=== PATIENT | female | born 1980 | race Caucasian/White ===

== ENCOUNTER 2021-09-09 01:01 | Day surgery (SDC) | payer OTHER, SELFPAY ==
[2021-08-20 14:37] VITALS: BMI 25.2
--- NOTE | 2021-09-08 15:36 | P.PNAN_ITS ---
Anes - Initial Pre Proc Eval Procedure: Operation Date: 09/09/21 07:30 Proposed Procedures p Screening Colonoscopy - Daniel Wong MD Date/Time: 09/08/21 15:36 Surgeon: Daniel Wong MD Pre Op Diagnosis: hx of colon polyps Patient Data Age: 41 Gender: F Height: 1.75 m Weight: 77.5 kg Allergies Allergy/AdvReac Type Severity Reaction Status Date / Time No Known Allergies Allergy Verified 09/09/21 06:13 Home Medications Medication Instructions Recorded Confirmed Type citalopram 20 mg tablet 20 mg PO DAILY 02/04/19 09/09/21 History levothyroxine 150 mcg tablet See Rx Instructions .Route 06/21/21 09/09/21 Rx (Synthroid) .COMPLEX #105 tabs Patient hx anesthesia problems: none Family hx anesthesia problems: none Results Review: All pre-operative results and documents have been reviewed as part of the pre- operative evaluation. [facility] Past Medical History Medical History (Updated 07/28/21 @ 11:43 by Daniel Wong MD) Anxiety Hypothyroidism, unspecified Nontoxic multinodular goiter RUBY (obstructive sleep apnea) Surgical History Surgical History (Updated 09/08/21 @ 15:37 by Ji Gonzales DO) History of cholecystectomy History of tubal ligation Family History Family History Other Diabetes mellitus Family history of chronic obstructive pulmonary disease Family history of lung cancer Family history of thyroid disease Social History Social History Smoking packs per day: 1 Smoking cigarettes per day: 20.0 Smoking status: Former smoker Tobacco type: cigarettes Smoking end date: 03/27/17 Additional smoking assessment comments: VAPES CURRENTLY Alcohol intake: current Drinks per week: 1 Alcohol use details: socially Substance use: never Substance use type: does not use Living arrangements: with family Spiritual care concerns: No Anes - Eval Final PreProcedure Day of Procedure 09/08/21 15:36 Patient weight: overweight Heart: regular rate and rhythm Lungs: clear to auscultation Airway: Mallampati scale class II Neurological: alert and oriented Last oral intake: >/= 8 hours ASA classification: III Emergent: no Anesthetic plan: proceed Anesthesia type and monitoring: general GIVS and standard monitoring Results Review: All pre-operative results and documents have been reviewed as part of the pre- operative evaluation. Informed Consent: The patient's anesthetic plan and its attendant risks and benefits were discussed with the patient/family/POA. Questions were solicited and answers provided to the satisfaction of the patient/family/POA.
[2021-09-09 06:15] VITALS: BP 109/66; PULSE 73; RESP 16; TEMP 36.4; O2SAT 99
[2021-09-09] MEDS: LACTATED RINGERS 1,000 ML 150 ML IV CONT (06:21)
--- NOTE | 2021-09-09 07:11 | PM.IMHP ---
H&P: HPI History of Present Illness Date/Time: 09/09/21 07:11 Chief Complaint: History of colon polyps. Narrative: This is a 41-year-old white female patient who has a history of colon polyps 5 years ago. She presents today for surveillance colonoscopy. She reports that her current weight appetite bowel movements are normal. She denies abdominal pain. She has had no bleeding. Family history is noncontributory. Review of Systems Review of Systems: Review of systems noncontributory. ON LICENSE OF [facility] Past Medical History Medical History (Updated 07/28/21 @ 11:43 by Daniel Wong MD) Anxiety Hypothyroidism, unspecified Nontoxic multinodular goiter RUBY (obstructive sleep apnea) Surgical History Surgical History (Updated 09/08/21 @ 15:37 by Ji Gonzales DO) History of cholecystectomy History of tubal ligation Family History Family History Other Diabetes mellitus Family history of chronic obstructive pulmonary disease Family history of lung cancer Family history of thyroid disease Social History Social History Smoking packs per day: 1 Smoking cigarettes per day: 20.0 Smoking status: Former smoker Tobacco type: cigarettes Smoking end date: 03/27/17 Additional smoking assessment comments: VAPES CURRENTLY Alcohol intake: current Drinks per week: 1 Alcohol use details: socially Substance use: never Substance use type: does not use Living arrangements: with family Spiritual care concerns: No Meds Home Medications and Allergies Home Medications Medication Instructions Recorded Confirmed Type citalopram 20 mg tablet 20 mg PO DAILY 02/04/19 09/09/21 History levothyroxine 150 mcg tablet See Rx Instructions .Route 06/21/21 09/09/21 Rx (Synthroid) .COMPLEX #105 tabs Allergies Allergy/AdvReac Type Severity Reaction Status Date / Time No Known Allergies Allergy Verified 09/09/21 06:13 Vital Signs Vital Signs - 24 hr 09/09/21 06:15 Temperature 97.5 F L Pulse Rate 73 Respiratory Rate 16 Blood Pressure 109/66 Pulse Oximetry 99 Oxygen Delivery Room Air Exam Narrative: Physical exam reveals patient to be alert. Vital signs stable. HEENT exam is unremarkable. Patient is anicteric. Lungs are clear to auscultation and percussion. Heart is without murmur or extra sounds. Abdominal exam bowel sounds present soft nontender with no organomegaly. Digital external rectal exam is normal. Assessment and Plan Assessment and plan (1) History of colon polyps: Code(s): Z86.010 - Personal history of colonic polyps Status: Acute Assessment and Plan: Patient has a history of tubular adenomatous colon polyps removed from the colon 5 years ago. She presents today for surveillance colonoscopy. Further recommendations will be given after endoscopy. Anticipate follow-up at 5 year intervals in the future.
[2021-09-09 07:49] VITALS: BP 84/48; PULSE 59; RESP 19; O2SAT 99
[2021-09-09 07:59] VITALS: BP 95/45; PULSE 57; RESP 20; O2SAT 99
[2021-09-09 08:09] VITALS: BP 98/52; PULSE 58; RESP 18; O2SAT 100
== END 2021-09-09 08:14 | disposition home or self-care (01) ==
PROVIDERS: PCP Internal Medicine; Visit Provider Internal Medicine Gastroenterology
PROC: 0DJD8ZZ Inspection of Lower Intestinal Tract, Via Natural or Artificial Opening Endoscopic (ICD-10-PCS; CPT 45378; principal; 2021-09-09 07:30)
DX: Z12.11 Encounter for screening for malignant neoplasm of colon (principal); K64.8 Other hemorrhoids; Z86.010 Personal history of colon polyps; E03.9 Hypothyroidism, unspecified; G47.33 Obstructive sleep apnea (adult) (pediatric); E04.2 Nontoxic multinodular goiter; F41.9 Anxiety disorder, unspecified; F17.290 Nicotine dependence, other tobacco product, uncomplicated
CPT/HCPCS: 45378; J2704; J7120

== ENCOUNTER 2021-10-26 09:42 | Outpatient (CLI) | payer OTHER, SELFPAY ==
[2021-10-26 19:57] LABS: Basophils Absolute Auto 0.1 K/mm3 (0.0-0.1); Basophils Percent Auto 0.8 % (0.2-1.2); Eosinophils Absolute Auto 0.1 K/mm3 (0-0.3); Eosinophils Percent Auto 1.4 % (0-4.4); Hemoglobin 14.1 g/dL (12.0-15.0); Immature Granulocyte Absolute 0.02 K/mm3 (0.00-0.031); Immature Granulocyte Percent A 0.3 % (0-0.5); Lymphocytes Absolute Auto 2.39 K/mm3 (0.9-3.2); Lymphocytes Percent Auto 30.2 % (18.3-44.2); Mean Corpuscular HGB Conc 32.8 g/dl (32-36); Mean Corpuscular Hemoglobin 29.6 pg (26-34); Mean Corpuscular Volume 90.3 fl (80-100); Mean Platelet Volume 11.4 fl (7.4-10.4); Monocytes Absolute Auto 0.6 K/mm3 (0.1-0.6); Neutrophils Absolute Auto 4.8 K/mm3 (1.3-6.7); Neutrophils Percent Auto 60.3 % (45.5-73.1); Platelet Count Result 256 k/mm3 (150-375); Red Blood Count 4.76 M/mm3 (4.2-5.4); Red Cell Distribution Width 13.3 % (11.5-14.5); White Blood Count 7.9 K/mm3 (4.5-10.0)
[2021-10-26 20:29] LABS: Alanine Aminotransferase 15 U/L (6-35); Albumin Level 4.3 g/dL (3.5-5.1); Alkaline Phosphatase 76 U/L (38-126); Anion Gap 7 mmol/L (8-16); Aspartate Amino Transferase 31 U/L (14-36); Bilirubin,Total 0.5 mg/dL (0.2-1.3); Blood Urea Nitrogen 13 mg/dL (7-17); Carbon Dioxide 28 mmol/L (22-30); Chloride 104 mmol/L (98-107); Cholesterol 179 mg/dL (0-200); Estimated Glomerular Filt Rate > 60; Glucose 91 mg/dL (65-110); HDL Direct 42 mg/dL; Potassium 4.4 mmol/L (3.4-5.0); Sodium 139 mmol/L (137-145); Triglycerides 86 mg/dL (<150)
[2021-10-26 20:38] LABS: Free T4 Free Thyroxine 1.28 ng/mL (0.78-2.19)
[2021-10-26 20:40] LABS: LDL Cholesterol Direct 117 mg/dL
[2021-10-26 20:44] LABS: Thyroid Stimulating Hormone 0.665 uIU/mL (0.465-4.680); Total Triiodothyronine (T3) 1.04 NG/ML (0.97-1.69)
== END 2021-10-26 09:43 | disposition home or self-care (01) ==
PROVIDERS: Nurse Practitioner; PCP Internal Medicine; Visit Provider Nurse Practitioner Family
DX: E03.9 Hypothyroidism, unspecified (principal); Z13.220 Encounter for screening for lipoid disorders; Z13.29 Encounter for screening for other suspected endocrine disorder
CPT/HCPCS: 36415; 80053; 80061; 84439; 84443; 84480; 85025

== ENCOUNTER → 2022-09-14 14:45 | Outpatient (CLI) | payer BC, SELFPAY ==
--- NOTE | ~2022-09-14 | MM_ITS ---
EXAMINATION: MM screening shilpi BI w casey HISTORY: Screening mammogram TECHNIQUE: Craniocaudal and mediolateral oblique 3-D tomosynthesis images were obtained and synthetic 2-D images were generated. CAD analysis was submitted and interpreted. COMPARISON: 04/22/2019 bilateral screening mammogram BREAST PARENCHYMAL COMPOSITION: There are scattered areas of fibroglandular density. FINDINGS: There is no evidence of suspicious mass, calcification, or architectural distortion to sugg est malignancy in either breast. There has been no suspicious interval change. IMPRESSION: 1. No mammographic evidence of malignancy. 2. Recommend routine screening mammography in one year. BI-RADS Category 1: Negative Reviewed, dictated and finalized at location A.
== END ==
PROVIDERS: PCP Nurse Practitioner Women's Health; Visit Provider Nurse Practitioner Women's Health
DX: Z12.31 Encounter for screening mammogram for malignant neoplasm of breast (principal)
CPT/HCPCS: 77063; 77067

== ENCOUNTER 2024-02-06 11:54 | Outpatient (CLI) | payer BC, SELFPAY ==
--- NOTE | ~2024-02-06 | MM_ITS ---
EXAMINATION: MM screening shilpi BI w casey HISTORY: Screening mammogram TECHNIQUE: Craniocaudal and mediolateral oblique 3-D tomosynthesis images were obtained and synthetic 2-D images were generated. CAD analysis was submitted and interpreted. COMPARISON: No prior mammogram is available for comparison at this institution. BREAST PARENCHYMAL COMPOSITION:Dense: The breasts are heterogeneously dense, which may obscure small masses. FINDINGS: No suspicious mass, calcification, or architectural distortion are identified in either ria ast to suggest malignancy. There has been no suspicious interval change. IMPRESSION: No mammographic evidence of malignancy. Recommend routine screening mammography in one year. BI-RADS Category 1: Negative Reviewed, dictated and finalized at location . [employer]
== END 2024-02-06 11:55 | disposition home or self-care (01) ==
LOC: MICIMG 11:55
PROVIDERS: PCP Nurse Practitioner Women's Health; Visit Provider Nurse Practitioner Women's Health
DX: Z12.31 Encounter for screening mammogram for malignant neoplasm of breast (principal)
CPT/HCPCS: 77063; 77067

== ENCOUNTER 2024-04-09 19:17 | Emergency (ER) | payer BC, SELFPAY ==
--- NOTE | 2024-04-09 19:19 | ECG_ITS ---
Test Date: 2024-04-09 19:26:58 Measurements Intervals Lennon Rate: 96 P: 53 VA: 145 QRS: 19 QRSD: 79 T: 34 QT: 332 QTc: 420 Interpretive Statements SINUS RHYTHM No previous ECG available for comparison Electronically Signed On 04-10-2024 14:19:45 [employer] by Gladys Sahni M.D.
[2024-04-09 19:27] VITALS: BP 118/70; PULSE 94; RESP 17; TEMP 36.5; O2SAT 99
--- NOTE | 2024-04-09 23:09 | PC.NURSE ---
Patient was called for in ED waiting room, no answer
== END 2024-04-09 23:05 | disposition left against medical advice (07) ==
PROVIDERS: Emergency Provider Student in an Organized Health Care Education/Training Program; PCP Internal Medicine
DX: R00.2 Palpitations (principal)
CPT/HCPCS: 93005; 99199